=== PATIENT | female | born 1985 | race Caucasian/White ===

== ENCOUNTER → 2023-09-27 17:02 | Outpatient (REF) | payer OTHER, SELFPAY | LOC: WDC 17:02 | PROVIDERS: ATTENDING PHYSICIAN Obstetrics & Gynecology; FAMILY PHYSICIAN Family Medicine | DX: Z12.31 Encounter for screening mammogram for malignant neoplasm of breast (principal) | CPT/HCPCS: 77063; 77067 ==

== ENCOUNTER 2024-06-20 12:57 | Emergency (ER) | payer OTHER, SELFPAY ==
[2024-06-20 13:05] VITALS: BP 161/112
[2024-06-20 13:45] LABS: COVID-19 Antigen Negative (Negative)
--- NOTE | 2024-06-20 14:07 | ED.GENMED ---
History of Present Illness
General
Chief Complaint: Cold/Flu/URI Symptoms
Source: patient
Exam Limitations: none
Time Seen by Provider: 06/20/24 13:54
History of Present Illness
History of Present Illness:
39-year-old female otherwise healthy presents with 5 days worth of intermittent headache cough sore throat and fatigue. Today symptoms culminated with chest pressure and sensation of feeling lightheaded. She was seen at the urgent care at the
onset of her illness and the COVID test was negative then. She denies any recent travel or surgery. No leg swelling or calf pain. No other complaints at this time
Past History
Past History
ED Past Medical History: None
ED Past Surgical History: None
Patient has exhibited threatening behavior?: No
Social History
Living: with family
Phy Exam
Physical Exam
Physical Exam:
General: Well-appearing female no acute respiratory distress HEENT: Normocephalic atraumatic, posterior pharynx without erythema or exudate neck is supple TMs normal no stridor trismus or drooling
Heart: Regular rate and rhythm
Lungs: Clear no wheeze
Extremities: No cyanosis
Abdomen soft nontender
Course
Orders/Labs/Results
Orders:
Orders
06/20/24 13:08
ECG [Electrocardiogram (*1)] Urgent
Reason for Study: Chest Pain
EKG- Treatment ONCE
06/20/24 13:14
COVID-19 Antigen Urgent
Source: Nasal Swab
Influenza A+B Rapid Molecular Urgent
JAIME Source: Nasal Swab
Specimen Description:
06/20/24 14:04
CT Head W/o Iv Contrast Urgent
Comment:
Reason For Exam: headache, nausea
CR Chest - 2 Views Urgent
Comment:
Reason For Exam: cough
06/20/24 14:33
Complete Blood Count/With Diff Urgent
Comprehensive Metabolic Panel Urgent
HCG, Serum Qualitative Screen Urgent
Comment: ADDON
Troponin I Urgent
Rapid Strep Group A Urgent
JAIME Source: Throat/Pharynx
Specimen Description:
Date Specimen was Collected: 06/20/24
Time Specimen was Collected: 14:09
Throat Culture [Throat Culture, Comprehensive] Urgent
JAIME Source: Throat/Pharynx
Specimen Description:
Date Specimen was Collected: 06/20/24
Time Specimen was Collected: 14:09
06/20/24 14:51
Add On- LAB Urgent
Tests Added?: hcg
Abnormal Lab Results
06/20/24
14:33
MCH 31.6 H pg
(27.0-31.0)
MPV 11.1 H fL
(7.4-10.4)
Creatinine 0.5 L mg/dL
(0.6-1.0)
AST 44 H U/L
(14-36)
Alkaline Phosphatase 31 L U/L
(38-126)
06/20/24 14:33
06/20/24 14:33
Vital Signs
Initial and Last Documented VS:
Initial Vital Signs
Temp Pulse Resp BP Pulse Ox
98.4 F 70 16 161/112 100
06/20/24 13:05 06/20/24 13:05 06/20/24 13:05 06/20/24 13:05 06/20/24 13:05
Last Documented Vital Signs
Temp Pulse Resp BP Pulse Ox
98.4 F 54 11 122/65 100
06/20/24 13:05 06/20/24 16:00 06/20/24 16:00 06/20/24 16:00 06/20/24 16:00
MDM/Problems Addressed
Differential Diagnosis Includes:
Patient with persistent cough now chest pressure and presyncopal sensation. She states that she was pale and sweaty while at work today. Question arrhythmia versus vasovagal response versus electrolyte abnormality or arrhythmia. EKG through
triage shows sinus rhythm without arrhythmia
COVID and flu test ordered in triage which were negative. Will add chest x-ray and CT of head given her intermittent headache
*Critical Care Note
Total Time (30-74mins, 75-104mins- exclusive of procedures): Not Applicable
Update Note
Update Note:
Workup here with negative CT and x-ray. Labs reviewed without significant finding. COVID flu and strep negative. Suspect ongoing viral illness. Recommended hydration and rest. Stable for discharge
ED Attending Note
-
Portions of this chart may have been created with voice recognition software.� Occasional wrong word or��sound alike� substitutions may have occurred due to the inherent limitations of voice recognition software.
Discharge Plan
Departure
Patient Disposition: Home (Routine Discharge)
Date of Disposition: 06/20/24
Time of Disposition: 16:53
Patient with high blood pressure during this ER visit?: No
Discharge Problem:
Viral illness
Instructions: Viral Syndrome (DC)
Prescriptions:
No Action
No Current Medications
0
Referrals:
NONE,* [Family Provider] -
Activity Restrictions/Additional Instructions:
Rest. Drink plenty fluids peer return if worse otherwise follow-up with your doctor
Interventions
Interventions:
*Risk Screen - Suicide Last Done: 06/20/24 14:25
*General Assessment Last Done: 06/20/24 14:25
*Neglect/Abuse Screening Last Done: 06/20/24 14:25
ED- Fall Risk Assessment Last Done: 06/20/24 16:39
*ED COVID-19 Vaccine History Last Done: 06/20/24 14:25
ED- Neurological Assessment Last Done: 06/20/24 14:10
ED- Pulmonary Assessment Last Done: 06/20/24 14:10
Discharge Date and Time
Print Language: UKRAINIAN
[2024-06-20 14:24] VITALS: BMI 37.2
[2024-06-20 14:28] VITALS: BP 135/89
[2024-06-20 14:55] LABS: % Basophils 0.7 % (0-2); % Eosinophils 1.8 % (0-6); % Immature Granulocytes 0.1 % (0-0.5); % Lymphocytes 26.3 % (20.5-51.1); % Monocytes 4.5 % (1.7-9.3); % Neutrophils 66.6 % (42.2-75.2); Absolute Basophils 0.1 10^3/uL (0-0.2); Absolute Eosinophils 0.1 10^3/uL (0-0.7); Absolute Lymphocytes 1.8 10^3/uL (1.2-3.4); Absolute Monocytes 0.3 10^3/uL (0.1-0.6); Absolute Neutrophils 4.5 10^3/uL (1.4-6.5); Hematocrit 42.1 % (37.0-47.0); Hemoglobin 14.1 g/dL (12.0-16.0); Mean Corp Hgb Conc. 33.5 g/dL (33.0-37.0); Mean Corpuscular Hgb 31.6 pg (27.0-31.0); Mean Corpuscular Volume 94.4 fL (81.0-99.0); Mean Platelet Volume 11.1 fL (7.4-10.4); Nucleated Red Blood Cells % 0 %; Platelet Count 274 10^3/uL (130-400); Red Blood Cell Count 4.46 10^6/uL (4.20-5.40); White Blood Cell Count 6.7 10^3/uL (4.8-10.8)
[2024-06-20 15:00] VITALS: BP 123/70
[2024-06-20 15:06] LABS: ALT (SGPT) 25 U/L (0-35); AST (SGOT) 44 U/L (14-36); Albumin 4.6 g/dl (3.5-5.0); Alkaline Phosphatase 31 U/L (38-126); Blood Urea Nitrogen 10 mg/dl (7-17); Calcium 9.6 mg/dl (8.4-10.2); Carbon Dioxide 24 mmol/L (22-30); Chloride 104 mmol/L (98-107); Estimated Creatinine Clearance 120 ml/min; Glucose 91 mg/dl (70-99); Potassium 4.2 mmol/L (3.5-5.1); Sodium 140 mmol/L (135-145); Total Bilirubin 0.3 mg/dl (0.2-1.3); Total Protein 7.8 g/dl (6.3-8.2); eGFR > 60.00
[2024-06-20 15:17] LABS: Troponin I < 0.012 ng/ml
[2024-06-20 15:44] LABS: HCG, Serum Qualitative Screen Negative
[2024-06-20 16:00] VITALS: BP 122/65
[2024-06-20 17:00] VITALS: BP 131/76
== END 2024-06-20 17:19 | disposition home or self-care (01) ==
LOC: EMR 12:57
PROVIDERS: Emergency Medicine; Physician Assistant; EMERGENCY PHYSICIAN Student in an Organized Health Care Education/Training Program
DX: B34.9 Viral infection, unspecified (principal)
CPT/HCPCS: 99285; 70450; 71046; 80053; 84484; 84703; 85025; 87070; 87502; 87811; 87880; 93005

== ENCOUNTER → 2024-10-25 15:33 | Outpatient (REF) | payer OTHER, SELFPAY | LOC: WDC 15:33 | PROVIDERS: ATTENDING PHYSICIAN Obstetrics & Gynecology; FAMILY PHYSICIAN Nurse Practitioner Family | DX: Z12.31 Encounter for screening mammogram for malignant neoplasm of breast (principal) | CPT/HCPCS: 77063; 77067 ==

== ENCOUNTER 2025-02-11 15:58 | Emergency (ER) | payer OTHER, SELFPAY ==
[2025-02-11] VITALS (9 sets, daily range): BP systolic 111–177; BP diastolic 66–107; BMI 32.2
[2025-02-11 16:53] LABS: % Basophils 0.7 % (0-2); % Eosinophils 0.7 % (0-6); % Immature Granulocytes 0.2 % (0-0.5); % Lymphocytes 30.2 % (20.5-51.1); % Monocytes 6.9 % (1.7-9.3); % Neutrophils 61.3 % (42.2-75.2); Absolute Lymphocytes 1.8 10^3/uL (1.2-3.4); Absolute Monocytes 0.4 10^3/uL (0.1-0.6); Absolute Neutrophils 3.7 10^3/uL (1.4-6.5); Hematocrit 40.3 % (37.0-47.0); Hemoglobin 13.8 g/dL (12.0-16.0); Mean Corp Hgb Conc. 34.2 g/dL (33.0-37.0); Mean Corpuscular Hgb 31.6 pg (27.0-31.0); Mean Corpuscular Volume 92.2 fL (81.0-99.0); Mean Platelet Volume 11.1 fL (7.4-10.4); Nucleated Red Blood Cells % 0 %; Platelet Count 240 10^3/uL (130-400); Red Blood Cell Count 4.37 10^6/uL (4.20-5.40); Red Cell Dist. Width 12.6 % (11.5-14.5); Urine Albumin Negative (Neg - Trace); Urine Bilirubin Negative (Negative); Urine Character Clear (Clear); Urine Color Yellow; Urine Glucose Negative (Negative); Urine Ketone 3+ (Negative); Urine Leukocyte Negative (Negative); Urine Nitrite Negative (Negative); Urine Occult Blood 2+ (Negative); Urine Urobilinogen Negative (Neg - 1+); White Blood Cell Count 6.1 10^3/uL (4.8-10.8)
[2025-02-11 16:59] LABS: Urine Bacteria Many (Negative); Urine White Cell 0-2 /HPF (0-5)
--- NOTE | 2025-02-11 17:02 | ED.GENMED ---
History of Present Illness
General
Chief Complaint: Abdominal Pain
Source: patient
Exam Limitations: none
Time Seen by Provider: 02/11/25 16:44
Nursing documentation reviewed up to this point in time: agreed with
History of Present Illness
History of Present Illness:
Presents to the ER for evaluation of abdominal pain. Abdominal pain started several days ago. She reports this started in her back however intermittently has settled more in the right side of her abdomen She reports pain is intermittent and
stabbing at times and now she feels that throughout the abdomen.. She was seen by her ux consultant this week and had full exam. She did have urinary frequency at the time but was told her urine was negative. She was initially started on
antibiotics and still taking them at this time . She does feel that at times food makes this worse. She denies any history of reflux/heartburn issues. Denies any diarrhea constipation. She moves her bowels normally
she has had a decrease in appetite and nausea. She does not feel the back pain anymore.
LMPmenstrual period was 2 weeks ago
Past History
Past History
ED Past Medical History: None
ED Past Surgical History: None
Patient has exhibited threatening behavior?: No
Social History
Living: with family
Phy Exam
General Physical Exam
General Presentation: no apparent distress
General age: appears stated age
General Skin: warm and dry
General Habitus: normal
General Mental: alert
General Hydration: appears well hydrated
Gastrointestinal Exam
Gastrointestinal Exam: soft and other (non specific tenderness to right abdomen no guarding )
Neurological Exam
Neurological Exam: alert and oriented x3
Musculoskeletal Exam
Musculoskeletal Exam: full ROM
Skin Exam
Skin Exam: normal color and warm/dry
Psychiatric Exam
Psychiatric Exam: normal mood/affect
Course
Orders/Labs/Results
Orders:
Orders
02/11/25 16:34
Test Result ONCE
02/11/25 16:44
Basic Metabolic Panel Urgent
Complete Blood Count/With Diff Urgent
HCG, Urine Qualitative Screen Urgent
Date Specimen was Collected: 02/11/25
Time Specimen was Collected: 16:37
Comment: ADD ON
Lipase Urgent
Urinalysis Reflex To Culture Urgent
Date Specimen was Collected: 02/11/25
Time Specimen was Collected: 16:37
Urine Microscopic Reflex Cult Urgent
Urine Culture Urgent
JAIME Source: U
Specimen Description:
Date Specimen was Collected: 02/11/25
Time Specimen was Collected: 16:37
02/11/25 17:12
0.9% Sodium Chloride 1000 ml [Nss] 1,000 ml IV BOLUS
Ondansetron Injectable [Zofran] 4 mg IV NOW STA
02/11/25 17:13
CT Abd/pelvis W Iv Cont Urgent
Comment:
Reason For Exam: pain/nausea
02/11/25 18:51
Add On- LAB Urgent
Comments:: hcg, serum qualitative screen to comprehensive metabolic panel
Tests Added?: hcg, serum qualitative screen added comprehensive metabolic panel
02/11/25 18:57
Test Result ONCE
02/11/25 19:16
Comprehensive Metabolic Panel Urgent
02/11/25 20:21
US Pelvis Only (non-obstetric) Urgent
Comment:
Reason For Exam: lower pelvic pain
Abnormal Lab Results
02/11/25 02/11/25
16:44 19:16
MCH 31.6 H pg
(27.0-31.0)
MPV 11.1 H fL
(7.4-10.4)
Chloride 109 H mmol/L 110 H mmol/L
(98-107) (98-107)
Carbon Dioxide 19 L mmol/L
(22-30)
BUN 6 L mg/dl
(7-17)
Creatinine 0.5 L mg/dL 0.5 L mg/dL
(0.6-1.0) (0.6-1.0)
Alkaline Phosphatase 27 L U/L
(38-126)
Urine Ketones 3+ A
(Negative)
Ur Occult Blood Reflex 2+ A
(Negative)
Urine RBC 3-6 A /HPF
(0-2)
Urine Bacteria (Reflex) Many A
(Negative)
02/11/25 16:44
02/11/25 19:16
Vital Signs
Initial and Last Documented VS:
Initial Vital Signs
Temp Pulse Resp BP Pulse Ox
97.8 F 92 18 177/107 99
02/11/25 16:00 02/11/25 16:00 02/11/25 16:00 02/11/25 16:00 02/11/25 16:00
Last Documented Vital Signs
Temp Pulse Resp BP Pulse Ox
97.8 F 59 10 127/88 99
02/11/25 16:00 02/11/25 21:30 02/11/25 21:30 02/11/25 21:15 02/11/25 21:30
MDM/Problems Addressed
Differential Diagnosis Includes:
not limited to: Renal colic, diverticulitis, appendicitis, gallbladder issues
MDM/Problems Addressed:
Patient is a 39-year-old female complain of intermittent abdominal pain for the past several days with nausea. She she describes pain as all throughout the abdomen she started having pain in her back initially. She presents awake alert no acute
distress nonspecific tenderness. CT was done initially which is negative for acute findings, no bowel obstruction no obstructive uropathy urinalysis negative for acute infection, white count is normal, normal renal function, normal normal LFTs.
No acute findings for pain . will check US of pelvis
Ultrasound pelvis negative for acute findings, no acute cause for pt's pain. pt is well appearing in the ED. I did discuss with patient with nausea/ intermittent pain possible will need GI workup .will advise patient to follow the family doctor
this wee and GI. Will DC on Bentyl
*Radiology
Radiology exam reviewed: radiology read reviewed
*Pulse Oximetry
SaO2: 99
Oxygen Mode of Delivery: Room air
Patient hypoxic: no
*Critical Care Note
Total Time (30-74mins, 75-104mins- exclusive of procedures): Not Applicable
ED Attending Note
-
Portions of this chart may have been created with voice recognition software.� Occasional wrong word or��sound alike� substitutions may have occurred due to the inherent limitations of voice recognition software.
Discharge Plan
Departure
Patient Disposition: Home (Routine Discharge)
Date of Disposition: 02/11/25
Time of Disposition: 21:55
Patient with high blood pressure during this ER visit?: Yes
Condition: Fair
Covid-19: Not Applicable
Discharge Problem:
Abdominal pain
Instructions: Abdominal Pain
Prescriptions:
New
dicyclomine 20 mg tablet
20 mg PO QID PRN (Reason: abdominal cramping) Qty: 10 0RF
Referrals:
Arabella Hernandez CRNP [Family Provider, Family Practice]
Raine Samuel DO [Active, Gastroenterology]
Activity Restrictions/Additional Instructions:
As discussed bland diet. You may take Bentyl as needed for discomfort. Follow-up with family doctor the next several days as well as GI. Please call for an appointment. Return if any worsening of symptoms.
Interventions
Interventions:
*Risk Screen - Suicide Last Done: 02/11/25 16:00
*General Assessment Last Done: 02/11/25 16:33
*Neglect/Abuse Screening Last Done: 02/11/25 16:00
*ED- Fall Risk Assessment Last Done: 02/11/25 16:33
*ED COVID-19 Vaccine History Last Done: 02/11/25 16:33
OE-Kzbiye-Aedaddkzgq Assessment Last Done: 02/11/25 16:48
Discharge Date and Time
Print Language: GREEK
[2025-02-11 17:13] LABS: Blood Urea Nitrogen 7 mg/dl (7-17); Calcium 9.2 mg/dl (8.4-10.2); Carbon Dioxide 19 mmol/L (22-30); Chloride 109 mmol/L (98-107); Estimated Creatinine Clearance 111 ml/min; Glucose 83 mg/dl (70-99); Lipase 120 U/L (23-300); Sodium 139 mmol/L (135-145); eGFR > 60.00
[2025-02-11] MEDS: ZOFRAN 4 MG IV (17:33)
[2025-02-11] MEDS: NSS 1000 IV (17:33)
[2025-02-11 19:11] LABS: HCG, Urine Qualitative Screen Negative
[2025-02-11 19:40] LABS: ALT (SGPT) 20 U/L (0-35); AST (SGOT) 31 U/L (14-36); Albumin 4.1 g/dl (3.5-5.0); Alkaline Phosphatase 27 U/L (38-126); Blood Urea Nitrogen 6 mg/dl (7-17); Calcium 8.9 mg/dl (8.4-10.2); Carbon Dioxide 22 mmol/L (22-30); Chloride 110 mmol/L (98-107); Estimated Creatinine Clearance 111 ml/min; Glucose 80 mg/dl (70-99); Potassium 3.9 mmol/L (3.5-5.1); Sodium 141 mmol/L (135-145); Total Bilirubin 0.5 mg/dl (0.2-1.3); Total Protein 7.1 g/dl (6.3-8.2); eGFR > 60.00
== END 2025-02-11 22:25 | disposition home or self-care (01) ==
LOC: EMR 15:58
PROVIDERS: EMERGENCY PHYSICIAN Emergency Medicine; FAMILY PHYSICIAN Nurse Practitioner Family
DX: R10.9 Unspecified abdominal pain (principal)
CPT/HCPCS: 99284; 96374; 96361; 74177; 76856; 80048; 80053; 81003; 81015; 81025; 83690; 85025; 87086; Q9967